=== PATIENT | male | born 1975 | race Caucasian/White ===

== ENCOUNTER 2020-01-04 16:23 | Emergency (ER) | payer OTHER ==
[~2020-01-04] VITALS: Ht 182.9 cm; Wt 74.8 kg
[2020-01-04 16:35] VITALS: BP 128/97
== END 2020-01-04 18:19 | disposition left against medical advice (07) ==
LOC: ER 16:23
DX: M79.641 Pain in right hand (principal); Z53.21 Procedure and treatment not carried out due to patient leaving prior to being seen by health care provider